=== PATIENT | female | born 1955 | race Caucasian/White ===

== ENCOUNTER → 2018-04-07 | Outpatient (CLI) | payer BC ==
--- NOTE | 2018-04-12 09:48 | MM ---
Reason for exam: screening (asymptomatic). Last mammogram was performed 11 years and 10 months ago. History: Benign excisional biopsy of the right breast. Physical Findings: A clinical breast exam by your physician is recommended on an annual basis and results should be correlated with mammographic findings. MG 3D Screening Mammo W/Cad Bilateral CC and MLO view(s) were taken. Prior study comparison: June 15, 2006, bilateral screening mammogram w/CAD. February 21, 2004, bilateral special view mammogram. The breast tissue is heterogeneously dense. This may lower the sensitivity of mammography. There is a stable right periareolar skin mass back to 2015. No suspicious abnormality. No significant changes when compared with prior studies. ASSESSMENT: Benign, BI-RAD 2 RECOMMENDATION: Routine screening mammogram of both breasts in 1 year.
== END | disposition home or self-care (01) ==
LOC: RADMAMWWP 09:50
PROVIDERS: ATTEND Family Medicine
DX: Z12.31 Encounter for screening mammogram for malignant neoplasm of breast (principal)
CPT/HCPCS: 77063; 77067

== ENCOUNTER → 2018-04-28 | Outpatient (CLI) | payer BC ==
[2018-04-28 07:57] LABS: Basophils # (A) 0.1 k/uL (0-0.2); Basophils % (A) 1 %; Eosinophils # (A) 0.2 k/uL (0-0.7); Eosinophils % (A) 3 %; HCT 41.1 % (34.0-46.0); HGB 13.5 gm/dL (11.4-16.0); Lymphocytes # (A) 1.4 k/uL (1.0-4.8); Lymphocytes % (A) 21 %; MCHC 32.7 g/dL (31.0-37.0); MCV 91.5 fL (80.0-100.0); Mean Platelet Volume 6.6; Monocytes # (A) 0.4 k/uL (0-1.0); Monocytes % (A) 5 %; Neutrophils # (A) 4.7 k/uL (1.3-7.7); Neutrophils % (A) 68 %; Platelet Count 304 k/uL (150-450); RBC 4.49 m/uL (3.80-5.40); RDW 11.9 % (11.5-15.5); WBC 6.9 k/uL (3.8-10.6)
[2018-04-28 08:26] LABS: ALT 27 U/L (9-52); AST 23 U/L (14-36); Albumin 3.9 g/dL (3.5-5.0); Alkaline Phosphatase 76 U/L (38-126); Anion Gap 8 mmol/L; Blood Urea Nitrogen 9 mg/dL (7-17); Calcium 9.1 mg/dL (8.4-10.2); Carbon Dioxide 29 mmol/L (22-30); Chloride 104 mmol/L (98-107); Cholesterol 162 mg/dL (<200); Glucose 93 mg/dL (74-99); HDL Cholesterol 60 mg/dL (40-60); LDL Cholesterol,Calculated 92 mg/dL (0-99); Potassium 4.7 mmol/L (3.5-5.1); Sodium 141 mmol/L (137-145); Total Bilirubin 0.5 mg/dL (0.2-1.3); Total Protein 6.7 g/dL (6.3-8.2); Triglycerides 48 mg/dL (<150)
[2018-04-28 08:40] LABS: T4, Free (Free Thyroxine) 0.82 ng/dL (0.78-2.19)
[2018-04-28 17:31] LABS: Vitamin D 25 Hydroxy 25.5 ng/mL (30.0-100.0)
== END | disposition home or self-care (01) ==
LOC: LABWHC1 06:55
PROVIDERS: ATTEND Family Medicine
DX: Z00.00 Encounter for general adult medical examination without abnormal findings (principal); E03.9 Hypothyroidism, unspecified; E55.9 Vitamin D deficiency, unspecified; R06.00 Dyspnea, unspecified; E53.8 Deficiency of other specified B group vitamins
CPT/HCPCS: 36415; 80053; 80061; 82306; 82607; 84439; 84443; 85025

== ENCOUNTER 2018-06-19 09:01 | Observation (INO) | payer BC ==
[2018-06-19] MEDS ORDERED: SODIUM CHLORIDE 0.9% 500 ML 500 ML IV STA (09:25)
--- NOTE | 2018-06-19 09:27 | ED ---
General Adult HPI - General Chief complaint: Chest Pain Stated complaint: chest pain, SOB Time Seen by Provider: 06/19/18 09:06 Source: patient, RN notes reviewed, old records reviewed Mode of arrival: ambulatory Limitations: no limitations - History of Present Illness Initial comments: 63-year-old female presents with complaint of dyspnea and central chest tightness. Symptoms have been ongoing for the past 4 days. Patient is normally quite healthy, no chronic medical problems. No history of CAD, no history DVT or PE, no history of asthma. Patient is a nonsmoker. She states that over the past 4 days she's had dyspnea and difficulty taking a full breath. She's had palpitations and mild central chest tightness. She also complains of some pain radiating to her right jaw and right arm which has been intermittent. She had one episode of vomiting and has had nausea throughout. No cough. No fever. No lower extremity pain or swelling. - Related Data Allergies Allergy/AdvReac Type Severity Reaction Status Date / Time No Known Allergies Allergy Verified 06/19/18 09:06 Review of Systems ROS Statement: Those systems with pertinent positive or pertinent negative responses have been documented in the HPI. ROS Other: All systems not noted in ROS Statement are negative. Past Medical History Past Medical History: Thyroid Disorder History of Any Multi-Drug Resistant Organisms: None Reported Past Surgical History: Hernia Repair Additional Past Surgical History / Comment(s): colonoscopy Past Psychological History: Anxiety Smoking Status: Never smoker Past Alcohol Use History: None Reported Past Drug Use History: None Reported General Exam Limitations: no limitations General appearance: alert, in no apparent distress Head exam: Present: atraumatic, normocephalic Eye exam: Present: normal appearance, PERRL ENT exam: Present: normal exam Neck exam: Present: normal inspection. Absent: tenderness, meningismus Respiratory exam: Present: normal lung sounds bilaterally. Absent: respiratory distress, wheezes Cardiovascular Exam: Present: regular rate, normal rhythm GI/Abdominal exam: Present: soft. Absent: distended, tenderness Extremities exam: Present: normal inspection, normal capillary refill. Absent: pedal edema Neurological exam: Present: alert, oriented X3, CN II-XII intact. Absent: motor sensory deficit Psychiatric exam: Present: normal affect, normal mood Skin exam: Present: warm, dry, intact Course Vital Signs 06/19/18 06/19/18 06/19/18 09:02 09:15 09:30 Temperature 98 F Pulse Rate 76 59 L Respiratory 18 15 Rate Blood Pressure 134/62 118/66 O2 Sat by Pulse 99 98 100 Oximetry 06/19/18 10:00 Temperature Pulse Rate 56 L Respiratory 15 Rate Blood Pressure 114/66 O2 Sat by Pulse 100 Oximetry EKG Findings - EKG Comments: EKG Findings:: EKG: Sinus bradycardia, rate of 58, OH interval 186, QRS duration 74, QTC 410, no ST segment elevation or depression Medical Decision Making - Medical Decision Making 63-year-old female presenting for evaluation of chest pain. Patient has no known history of CAD, she is otherwise healthy. Chest pain has been intermittent over the past several days. She does have radiation to the right jaw. EKG is sinus bradycardia with no ST segment changes. Chest x-ray negative for acute cardiopulmonary disease. Patient has normal CBC, normal CMP , negative d-dimer and negative initial troponin. Patient will be kept in observation for serial cardiac enzymes, telemetry, and cardiology consultation. Case discussed with admitting physician, will accept. - Lab Data Result diagrams: 06/19/18 09:30 06/19/18 09:30 Lab Results 06/19/18 06/19/18 06/19/18 Range/Units 09:30 09:30 09:30 WBC 7.0 (3.8-10.6) k/uL RBC 4.75 (3.80-5.40) m/uL Hgb 14.1 (11.4-16.0) gm/dL Hct 42.7 (34.0-46.0) % MCV 89.9 (80.0-100.0) fL MCH 29.6 (25.0-35.0) pg MCHC 33.0 (31.0-37.0) g/dL RDW 11.7 (11.5-15.5) % Plt Count 335 (150-450) k/uL Neutrophils % 71 % Lymphocytes % 20 % Monocytes % 5 % Eosinophils % 1 % Basophils % 1 % Neutrophils # 4.9 (1.3-7.7) k/uL Lymphocytes # 1.4 (1.0-4.8) k/uL Monocytes # 0.4 (0-1.0) k/uL Eosinophils # 0.1 (0-0.7) k/uL Basophils # 0.0 (0-0.2) k/uL PT (9.0-12.0) sec INR (<1.2) APTT (22.0-30.0) sec D-Dimer (<0.60) mg/L FEU Sodium 139 (137-145) mmol/L Potassium 4.0 (3.5-5.1) mmol/L Chloride 104 (98-107) mmol/L Carbon Dioxide 27 (22-30) mmol/L Anion Gap 8 mmol/L BUN 9 (7-17) mg/dL Creatinine 0.64 (0.52-1.04) mg/dL Est GFR (CKD-EPI)AfAm >90 (>60 ml/min/1.73 sqM) Est GFR (CKD-EPI)NonAf >90 (>60 ml/min/1.73 sqM) Glucose 108 H (74-99) mg/dL Calcium 9.5 (8.4-10.2) mg/dL Magnesium 1.9 (1.6-2.3) mg/dL Total Bilirubin 0.7 (0.2-1.3) mg/dL AST 20 (14-36) U/L ALT 24 (9-52) U/L Alkaline Phosphatase 70 (38-126) U/L Total Creatine Kinase 51 (30-135) U/L CK-MB (CK-2) 0.5 (0.0-2.4) ng/mL CK-MB (CK-2) Rel Index 1.0 Troponin I <0.012 (0.000-0.034) ng/mL NT-Pro-B Natriuret Pep pg/mL Total Protein 7.0 (6.3-8.2) g/dL Albumin 4.0 (3.5-5.0) g/dL Lipase 176 (23-300) U/L 06/19/18 06/19/18 Range/Units 09:30 09:30 WBC (3.8-10.6) k/uL RBC (3.80-5.40) m/uL Hgb (11.4-16.0) gm/dL Hct (34.0-46.0) % MCV (80.0-100.0) fL MCH (25.0-35.0) pg MCHC (31.0-37.0) g/dL RDW (11.5-15.5) % Plt Count (150-450) k/uL Neutrophils % % Lymphocytes % % Monocytes % % Eosinophils % % Basophils % % Neutrophils # (1.3-7.7) k/uL Lymphocytes # (1.0-4.8) k/uL Monocytes # (0-1.0) k/uL Eosinophils # (0-0.7) k/uL Basophils # (0-0.2) k/uL PT 10.6 (9.0-12.0) sec INR 1.1 (<1.2) APTT 24.7 (22.0-30.0) sec D-Dimer 0.31 (<0.60) mg/L FEU Sodium (137-145) mmol/L Potassium (3.5-5.1) mmol/L Chloride (98-107) mmol/L Carbon Dioxide (22-30) mmol/L Anion Gap mmol/L BUN (7-17) mg/dL Creatinine (0.52-1.04) mg/dL Est GFR (CKD-EPI)AfAm (>60 ml/min/1.73 sqM) Est GFR (CKD-EPI)NonAf (>60 ml/min/1.73 sqM) Glucose (74-99) mg/dL Calcium (8.4-10.2) mg/dL Magnesium (1.6-2.3) mg/dL Total Bilirubin (0.2-1.3) mg/dL AST (14-36) U/L ALT (9-52) U/L Alkaline Phosphatase (38-126) U/L Total Creatine Kinase (30-135) U/L CK-MB (CK-2) (0.0-2.4) ng/mL CK-MB (CK-2) Rel Index Troponin I (0.000-0.034) ng/mL NT-Pro-B Natriuret Pep 191 pg/mL Total Protein (6.3-8.2) g/dL Albumin (3.5-5.0) g/dL Lipase (23-300) U/L Disposition Clinical Impression: Chest pain Disposition: ADMITTED IP TO THIS [facility] Condition: Stable Is patient prescribed a controlled substance at d/c from ED?: No Referrals: Kathe Saba MD [Primary Care Provider] - 1-2 days Decision to Admit Reason: Admit from EC Decision Date: 06/19/18 Decision Time: 10:53
--- NOTE | 2018-06-19 09:52 | XR ---
EXAMINATION TYPE: XR chest 2V DATE OF EXAM: 06/19/2018 HISTORY: Chest Pain. REFERENCE: Previous study dated 07/09/2017. FINDINGS: The lungs are overinflated but clear. Pleural spaces are clear. Heart size is within normal limits. IMPRESSION: PLEASE CORRELATE FOR COPD.
[2018-06-19 09:57] LABS: Basophils % (A) 1 %; Eosinophils # (A) 0.1 k/uL (0-0.7); Eosinophils % (A) 1 %; HCT 42.7 % (34.0-46.0); HGB 14.1 gm/dL (11.4-16.0); Lymphocytes # (A) 1.4 k/uL (1.0-4.8); Lymphocytes % (A) 20 %; MCH 29.6 pg (25.0-35.0); MCV 89.9 fL (80.0-100.0); Mean Platelet Volume 6.8; Monocytes # (A) 0.4 k/uL (0-1.0); Monocytes % (A) 5 %; Neutrophils # (A) 4.9 k/uL (1.3-7.7); Neutrophils % (A) 71 %; Platelet Count 335 k/uL (150-450); RBC 4.75 m/uL (3.80-5.40); RDW 11.7 % (11.5-15.5)
[2018-06-19 10:09] LABS: D-Dimer 0.31 mg/L FEU (<0.60); INR 1.1 (<1.2); Partial Thromboplastin Time 24.7 sec (22.0-30.0); Prothrombin Time 10.6 sec (9.0-12.0)
[2018-06-19 10:13] LABS: ALT 24 U/L (9-52); AST 20 U/L (14-36); Alkaline Phosphatase 70 U/L (38-126); Anion Gap 8 mmol/L; Blood Urea Nitrogen 9 mg/dL (7-17); Calcium 9.5 mg/dL (8.4-10.2); Carbon Dioxide 27 mmol/L (22-30); Chloride 104 mmol/L (98-107); Glucose 108 mg/dL (74-99); Lipase 176 U/L (23-300); Magnesium 1.9 mg/dL (1.6-2.3); Sodium 139 mmol/L (137-145); Total Bilirubin 0.7 mg/dL (0.2-1.3)
[2018-06-19 10:19] LABS: Creatine Kinase 51 U/L (30-135)
[2018-06-19 10:31] LABS: Creatine Kinase MB 0.5 ng/mL (0.0-2.4); Troponin I <0.012 ng/mL (0.000-0.034)
[2018-06-19] MEDS ORDERED: ASPIRIN 325 MG TAB PO STA (10:43)
[2018-06-19] MEDS ORDERED: NALOXONE 0.4 MG/ML 1 ML VIAL IV PRN (10:49)
--- NOTE | 2018-06-19 15:15 | P.HPIM ---
History of Present Illness H&P Date: 06/19/18 Chief Complaint: Chest pain 63-year-old female with PMH of hypothyroidism presents to the ED for chest pain and shortness of breath. Patient states that she was sitting down once a night when she experienced a sudden onset of racing heart that led to some shortness of breath. At that time patient believed that she lost consciousness for about 1 second. When she woke up she was confused, sweating and had one episode of vomiting that was NBNB. Patient denied any bladder or bowel incontinence at that time. She denied any auras prior to the episode. Patient states over the next 3 days she has felt more short of breath, stated that she "can't catch my breath". She also complains of waves of palpitation and chest soreness. Today, she experienced some numbness in her right cheek which prompted her to come to the emergency department. Otherwise, patient reports that she is in good health. She does complain of shortness of breath with exertion, able to climb 3 flights of stairs before stopping to catch her breath. She denies any orthopnea. She does have a history of panic attacks. Last one was 7 years ago. She denies any recent stress. In the ED, CBC was unremarkable. Coagulation panel is unremarkable. D-dimer is negative. CMP was negative except for a glucose of 108. Troponin was less than 0.012, EKG shows sinus bradycardia. BNP was 191. Chest x-ray shows COPD. Patient is admitted under observation to rule out ACS, cardiology on consult as well. Review of Systems All systems: negative Past Medical History Past Medical History: Thyroid Disorder History of Any Multi-Drug Resistant Organisms: None Reported Past Surgical History: Hernia Repair Additional Past Surgical History / Comment(s): colonoscopy Past Psychological History: Anxiety Smoking Status: Never smoker Past Alcohol Use History: None Reported Past Drug Use History: None Reported Medications and Allergies Home Medications Medication Instructions Recorded Confirmed Type Antronex 1 tab PO DAILY 06/19/18 06/19/18 History Hyper Thyroid Oral Drops 1 drop PO BID 06/19/18 06/19/18 History Levothyroxine Sodium [Synthroid] 25 mcg PO DAILY 06/19/18 06/19/18 History Vitamin D3-K2 Oral [place] 1 spray PO DAILY 06/19/18 06/19/18 History Allergies Allergy/AdvReac Type Severity Reaction Status Date / Time No Known Allergies Allergy Verified 06/19/18 10:59 Physical Exam Vitals: Vital Signs Temp Pulse Resp BP Pulse Ox 06/19/18 12:30 58 L 18 114/65 96 06/19/18 12:00 59 L 18 104/65 99 06/19/18 11:30 54 L 18 117/64 100 06/19/18 11:00 57 L 24 107/68 98 06/19/18 10:30 59 L 11 L 112/67 97 06/19/18 10:00 56 L 15 114/66 100 06/19/18 09:30 59 L 15 118/66 100 06/19/18 09:15 98 06/19/18 09:02 98 F 76 18 134/62 99 Intake and Output 06/19/18 06/19/18 06/19/18 06:59 14:59 22:59 Other: Weight 61.235 kg General: [non toxic], [no distress], [appears at stated age] Derm: [warm], [dry] Head: [atraumatic], [normocephalic], [symmetric] Eyes: [EOMI], [no lid lag], [anicteric sclera] Mouth: [no lip lesion], [mucus membranes moist] Cardiovascular: [S1S2 reg], [no murmur], [positive DP pulse bilateral] Lungs: [CTA bilateral], [no rhonchi, no rales] , [no accessory muscle use] Abdominal: [soft], [ nontender to palpation], [no guarding], [no appreciable organomegaly] Ext: [no gross muscle atrophy], [no edema], [no contractures] Neuro: [no focal neuro deficits] Psych: [Alert], [oriented], [appropriate affect] Results CBC & Chem 7: 06/19/18 09:30 06/19/18 09:30 Labs: Abnormal Lab Results - Last 24 Hours (Table) 06/19/18 Range/Units 09:30 Glucose 108 H (74-99) mg/dL Thrombosis Risk Factor Assmnt - Choose All That Apply Any of the Below Risk Factors Present?: No Other Risk Factors: Yes Each Risk Factor Represents 2 Points: Age 61-74 years Thrombosis Risk Factor Assessment Total Risk Factor Score: 2 Thrombosis Risk Factor Assessment Level: Low Risk Assessment and Plan Assessment: Assessment and Plan 1. Chest pain: Sounds like panic attack but concerns for ACS. Troponin < 0.012, EKG showing sinus bradycardia. CXR consistent with COPD. Pain management with Tylenol. Telemetry monitoring. O2 per NC to maintain O2 sat > 92%. Trend Trop/ EKG x 2 to r/o ACS. FU Echocardiogram, Cardiology. 2. Hypothyroidism: Stable. Continue Synthroid 25 mcg PO QD. 3. DVT/GI Prophylaxis: Protonix 40 mg PO QD. SCD boots only.
[2018-06-19 16:39] LABS: Creatine Kinase 42 U/L (30-135)
[2018-06-19] MEDS: ACETAMINOPHEN TAB 325 MG TAB PO PRN (16:42)
[2018-06-19 16:51] LABS: Creatine Kinase MB 0.3 ng/mL (0.0-2.4); Troponin I <0.012 ng/mL (0.000-0.034)
[2018-06-19 22:10] LABS: Creatine Kinase 40 U/L (30-135)
[2018-06-19 22:23] LABS: Creatine Kinase MB 0.3 ng/mL (0.0-2.4); Troponin I <0.012 ng/mL (0.000-0.034)
[2018-06-20] MEDS ORDERED: LEVOTHYROXINE 25 MCG TAB PO SCH (06:30)
[2018-06-20] MEDS ORDERED: PANTOPRAZOLE 40 MG TABLET PO SCH (07:30)
[2018-06-20] MEDS ORDERED: NICOTINE 21MG/24HR PATCH TRANSDERM SCH (09:00)
--- NOTE | 2018-06-20 09:34 | ECHOF ---
Referral Reason:chest pain MEASUREMENTS -------- HEIGHT: 165.1 cm WEIGHT: 61.2 kg BP: 106/63 RVIDd: 2.5 cm (< 3.3) IVSd: 0.9 cm (0.6 - 1.1) LVIDd: 3.7 cm (3.9 - 5.3) LVPWd: 1.1 cm (0.6 - 1.1) IVSs: 1.3 cm LVIDs: 2.5 cm LVPWs: 1.2 cm LA Diam: 2.6 cm (2.7 - 3.8) LAESV Index (A-L): 21.73 ml/m Ao Diam: 2.9 cm (2.0 - 3.7) AV Cusp: 2.3 cm (1.5 - 2.6) EPSS: 0.1 cm MV E Ezekiel: 0.95 m/s MV DecT: 332 ms MV A Ezekiel: 0.87 m/s MV E/A Ratio: 1.09 AR PHT: 893 ms RAP: 5.00 mmHg RVSP: 19.68 mmHg MV EF SLOPE: 60.84 mm/s (70 - 150) MV EXCURSION: 2.13 cm (> 18.000) FINDINGS -------- Sinus rhythm. This was a technically good study. The left ventricular size is normal. Left ventricular wall thickness is normal. Overall left vent ricular systolic function is normal with, an EF between 60 - 65 %. The right ventricle is normal in size. Normal LA size by volume 22+/-6 ml/m2. The right atrium is normal in size. The aortic valve is trileaflet and appears structurally normal. There is mild aortic regurgitation. The mitral valve is normal. There is trace mitral regurgitation. Mild tricuspid regurgitation present. Right ventricular systolic pressure is normal at < 35 mmHg. Trace/mild (physiologic) pulmonic regurgitation. The aortic root size is normal. Normal inferior vena cava with normal inspiratory collapse consistent with estimated right atrial pre ssure of 5 mmHg. There is no pericardial effusion. CONCLUSIONS -------- 1. Sinus rhythm. 2. This was a technically good study. 3. The left ventricular size is normal. 4. Left ventricular wall thickness is normal. 5. Overall left ventricular systolic function is normal with, an EF between 60 - 65 %. 6. The right ventricle is normal in size. 7. Normal LA size by volume 22+/-6 ml/m2. 8. The right atrium is normal in size. 9. The aortic valve is trileaflet and appears structurally normal. 10. There is mild aortic regurgitation. 11. The mitral valve is normal. 12. There is trace mitral regurgitation. 13. Mild tricuspid regurgitation present. 14. Right ventricular systolic pressure is normal at < 35 mmHg. 15. Trace/mild (physiologic) pulmonic regurgitation. 16. The aortic root size is normal. 17. Normal inferior vena cava with normal inspiratory collapse consistent with estimated right atrial pressure of 5 mmHg. 18. There is no pericardial effusion. VALET: MICHELA Brown
[2018-06-20 09:53] VITALS: TEMP 97.9
[2018-06-20 09:57] VITALS: BP 107/70
[2018-06-20 10:05] VITALS: PULSE 93; RESP 16
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
--- NOTE | 2018-06-20 11:54 | ECHOS ---
STRESS ECHOCARDIOGRAM INDICATIONS: Chest pain. MEDICATIONS: Synthroid. BASELINE HEART RATE: 66 BASELINE BLOOD PRESSURE: 108/57 MAXIMUM HEART RATE: 138 MAXIMUM BLOOD PRESSURE: 139/71 85% MPHR: 134 100% MPHR: 158 METS: 12.0 MAXIMUM STAGE REACHED: 4 TOTAL EXERCISE TIME: 10:30 CLINICAL INFORMATION: Baseline EKG shows sinus rhythm, normal axis, normal intervals. Patient exercised on Brijesh protocol for a total of 10.5 minutes achieving 12 METs, 85% of predicted maximal heart rate without chest pain or diagnostic ST-segment depression. Baseline echo shows normal left ventricular size, wall motion, systolic function. Postexercise, there is normal hyperdynamic response of all segments of myocardium noted. CONCLUSION: 1. Excellent exercise tolerance. 2. Negative stress test by EKG criteria. 3. Negative stress echo. MMODL / IJN: [id number] /
[2018-06-20] MEDS: ACETAMINOPHEN TAB 325 MG TAB PO PRN (12:49)
--- NOTE | 2018-06-20 18:44 | P.DS ---
Providers Date of admission: 06/19/18 10:49 Expected date of discharge: 06/20/18 Attending physician: Aundrea Fletcher MD Consults: 06/19/18 10:49 Consult Physician Routine Consulting Provider: Judie Lu Consult Reason/Comments: Chest pain Do you want consulting provider notified?: Yes Primary care physician: Kathe Saba MD Hospital Course: Patient is a 63-year-old female with a past medical history of hypothyroidism and anxiety who presented to the ED complaining of chest pain associated with palpitations, shortness of breath, dizziness and episode of nausea. Patient had associated episodes of diaphoresis. Patient was placed under observation status for evaluation of chest pain. Cardiology was consulted and recommended an echocardiogram stress test which showed excellent exercise tolerance and negative stress test by EKG criteria along with a negative stress echo. The patient was subsequently cleared for discharge. Physical Examination General: Awake, alert, in no acute distress HEENT: NC/AT, anicteric sclerae, moist conjunctiva, no lid-lag, PERRLA, oropharynx clear, no erythema, exudates Cardiovascular: S1/S2 wnl, no murmurs, rubs, or gallops Lungs: Clear to auscultation, normal respiratory effort, no accessory muscle use Abdominal: Soft, nontender, non-distended, no guarding, rebound, or rigidity, normoactive bowel sounds Skin: Warm, dry Extremities: No edema or contractures Psychiatric: Alert and oriented to person, place and time, appropriate affect, Intact judgment Neuro: CN II-XI grossly intact, sensation to light touch grossly present throughout, no focal sensory deficits Discharge diagnosis:Panic disorder, Hypothyroidism A total of 40 minutes of time were spent preparing this complex discharge summary. Patient Condition at Discharge: Good Plan - Discharge Summary Discharge Rx Participant: No New Discharge Prescriptions: Continue Levothyroxine Sodium [Synthroid] 25 mcg PO DAILY Vitamin D3-K2 Oral [place] 1 spray PO DAILY Hyper Thyroid Oral Drops 1 drop PO BID Antronex 1 tab PO DAILY Discharge Medication List Antronex 1 tab PO DAILY 06/19/18 [History] Hyper Thyroid Oral Drops 1 drop PO BID 06/19/18 [History] Levothyroxine Sodium [Synthroid] 25 mcg PO DAILY 06/19/18 [History] Vitamin D3-K2 Oral [place] 1 spray PO DAILY 06/19/18 [History] Follow up Appointment(s)/Referral(s): Kathe Saba MD [Primary Care Provider] - 1-2 days (06/23 at 8:20am ) Gumaro Kelley MD [STAFF PHYSICIAN] - 08/03/18 10:00 am Patient Instructions/Handouts: Chest Pain (DC), Telemetry Monitoring (GEN) Activity/Diet/Wound Care/Special Instructions: resume same home medications no restrictions with activity 30 day event monitor- educated on use and wear Discharge Disposition: HOME SELF-CARE
== END 2018-06-20 15:01 | disposition home or self-care (01) ==
LOC: EC 09:01 → 1SOBS 10:49
PROVIDERS: ADMIT Family Medicine; ATTEND Family Medicine
DX: R07.89 Other chest pain (principal); R11.2 Nausea with vomiting, unspecified; E03.9 Hypothyroidism, unspecified; F41.0 Panic disorder [episodic paroxysmal anxiety]; Z79.890 Hormone replacement therapy; Z82.49 Family history of ischemic heart disease and other diseases of the circulatory system; Z79.899 Other long term (current) drug therapy
CPT/HCPCS: 96360; 99285; 36415; 93005; 93306; 93270; 93271; 93351; 85379; 83880; 80053; 84443; 82550; 82553; 83690; 83735; 84484; 85025; 85610; 85730; 71046; G0378 ×2

== ENCOUNTER → 2018-06-23 | Outpatient (CLI) | payer BC ==
--- NOTE | 2018-06-23 11:03 | CT ---
EXAMINATION TYPE: CT brain wo con DATE OF EXAM: 06/23/2018 COMPARISON: None INDICATION: Episode of change in speech; Numbness DLP: 943.80 mGycm, Automated exposure control for dose reduction was used. CONTRAST: None CT of the brain is performed utilizing 3 mm thick sections through the posterior fossa and 3 mm thick sections through the remaining calvarium. Study is performed within 24 hours of arrival to the hosp ital. No abnormal hyperdensity is present to suggest an acute intracranial hemorrhage. No mass lesion is evident. No acute infarcts are evident. Ventricles and sulci are appropriate for the patient age. There is a patent cavum septum lucidum, a normal variant. Paranasal sinuses and mastoid air cells within the [id number] are clear. IMPRESSIONS: 1. Normal CT Brain
== END | disposition home or self-care (01) ==
LOC: RADCTMAIN 10:24
PROVIDERS: ATTEND Family Medicine
DX: R20.0 Anesthesia of skin (principal); R47.89 Other speech disturbances
CPT/HCPCS: 70450

== ENCOUNTER → 2019-05-19 | Outpatient (CLI) | payer BC ==
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
--- NOTE | 2019-05-23 08:17 | MM ---
Reason for exam: screening (asymptomatic). Last mammogram was performed 1 year and 1 month ago. History: Patient is postmenopausal. Benign excisional biopsy of the right breast. Physical Findings: A clinical breast exam by your physician is recommended on an annual basis and results should be correlated with mammographic findings. MG 3D Screening Mammo W/Cad Bilateral CC and MLO view(s) were taken. Prior study comparison: April 07, 2018, bilateral MG 3d screening mammo w/cad. July 31, 2016, mammogram. October 30, 2014, mammogram. There are scattered fibroglandular densities. Global asymmetry on the left is stable. No significant changes when compared with prior studies. ASSESSMENT: Negative, BI-RAD 1 RECOMMENDATION: Routine screening mammogram of both breasts in 1 year.
== END | disposition home or self-care (01) ==
LOC: RADMAMWWP 07:57
PROVIDERS: ATTEND Obstetrics & Gynecology
DX: Z12.31 Encounter for screening mammogram for malignant neoplasm of breast (principal); M85.851 Other specified disorders of bone density and structure, right thigh; M85.852 Other specified disorders of bone density and structure, left thigh; M85.88 Other specified disorders of bone density and structure, other site
CPT/HCPCS: 77063; 77067; 77080

== ENCOUNTER 2019-07-11 02:33 | Emergency (ER) | payer BC ==
[2019-07-11] MEDS ORDERED: FAMOTIDINE 20 MG/2 ML VIAL IV STA (02:43)
[2019-07-11] MEDS ORDERED: methylPREDNISolone SOD SUCCI 125 MG/2 ML VIAL IV STA (02:43)
[2019-07-11] MEDS ORDERED: diphenhydrAMINE 50 MG/ML 1 ML VIAL IVP STA (02:43)
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
[2019-07-11 04:16] VITALS: BP 107/69; PULSE 70; RESP 16; TEMP 98
== END 2019-07-11 04:17 | disposition home or self-care (01) ==
LOC: EC 02:33
DX: T78.40XA Allergy, unspecified, initial encounter (principal); E03.9 Hypothyroidism, unspecified; Z79.890 Hormone replacement therapy; Z79.899 Other long term (current) drug therapy
CPT/HCPCS: 96374; 96375 ×2; 99283; J1200; J2930

== ENCOUNTER → 2019-07-13 | Outpatient (CLI) | payer BC ==
[2019-07-14 13:33] LABS: Almond IgE <0.10 kU/L (<0.10); Almond IgE Class CLASS 0; Beef IgE <0.10 kU/L (<0.10); Beef IgE Class CLASS 0; Pork IgE Class CLASS 0
[2019-07-14 13:34] LABS: Apple IgE Class CLASS 0; Chicken IgE Class CLASS 0; Chocolate IgE Class CLASS 0; Gluten IgE Class CLASS 0; Latex IgE Class CLASS 0; Yeast Bakers/Brew IgE <0.10 kU/L (<0.10)
[2019-07-14 13:35] LABS: Alt. alternata IgE Class CLASS 0; Alternaria alternata IgE <0.10 kU/L (<0.10); Asperg. fumagatus IgE <0.10 kU/L (<0.10); Asperg. fumagatus IgE Class CLASS 0; Aureo. pullulans IgE <0.10 kU/L (<0.10); Aureo. pullulans IgE Class CLASS 0; Avocado Class CLASS 0; Banana IgE Class CLASS 0; Birch(Com.Silvr) IgE <0.10 kU/L (<0.10); Birch(Com.Silvr) IgE Class CLASS 0; Candida albicans IgE Class CLASS 0; Cat Epith & Dander IgE <0.10 kU/L (<0.10); Cat Epith & Dander IgE Class CLASS 0; Clad herbarum IgE <0.10 kU/L (<0.10); Clad herbarum IgE Class CLASS 0; Cockroach IgE <0.10 kU/L (<0.10); Coffee IgE <0.10 kU/L (<0.10); Coffee IgE Class CLASS 0; Com. Pigweed IgE <0.10 kU/L (<0.10); Com. Pigweed IgE Class CLASS 0; Cottonwood IgE <0.10 kU/L (<0.10); Cow's Milk IgE Class CLASS 0; Dermato. Pteronyssinus Class CLASS 0; Dermato. Pteronyssinus IgE <0.10 kU/L (<0.10); Dermato. farinae IgE <0.10 kU/L (<0.10); Dermato. farinae IgE Class CLASS 0; Dog Dander IgE <0.10 kU/L (<0.10); Egg White IgE <0.10 kU/L (<0.10); English Plantain IgE Class CLASS 0; Epicoccum purpurascens Class CLASS 0; Epicoccum purpurascens IgE <0.10 kU/L (<0.10); Hazelnut IgE <0.10 kU/L (<0.10); Hazelnut IgE Class CLASS 0; Johnson Grass IgE Class CLASS 0; Kiwi IgE <0.10 kU/L (<0.10); Kiwi IgE Class CLASS 0; Lamb's Quarter IgE <0.10 kU/L (<0.10); Lamb's Quarter IgE Class CLASS 0; Maple (Box Elder) IgE <0.10 kU/L (<0.10); Maple (Box Elder) IgE Class CLASS 0; Mucor racemosus IgE <0.10 kU/L (<0.10); Mucor racemosus IgE Class CLASS 0; Oak IgE <0.10 kU/L (<0.10); Peanut IgE <0.10 kU/L (<0.10); Potato IgE <0.10 kU/L (<0.10); Potato IgE Class CLASS 0; Rhizopus nigricans IgE <0.10 kU/L (<0.10); S.rostrata/Helminth Class CLASS 0; S.rostrata/Helminth IgE <0.10 kU/L (<0.10); Soybean IgE <0.10 kU/L (<0.10); Sycamore(Mpl.Lf) IgE <0.10 kU/L (<0.10); Tea IgE <0.10 kU/L (<0.10); Timothy Grass IgE <0.10 kU/L (<0.10); Walnut Tree IgE <0.10 kU/L (<0.10); Walnut Tree IgE Class CLASS 0; White Ash IgE Class CLASS 0
== END ==
LOC: LABWHC1 13:05
PROVIDERS: ATTEND Otolaryngology
DX: L50.0 Allergic urticaria (principal)
CPT/HCPCS: 36415; 86003

== ENCOUNTER → 2019-08-08 | Outpatient (CLI) | payer BC ==
[2019-08-08 16:18] LABS: Basophils % (A) 1 %; Eosinophils # (A) 0.3 k/uL (0-0.7); Eosinophils % (A) 4 %; HCT 41.5 % (34.0-46.0); HGB 13.4 gm/dL (11.4-16.0); Lymphocytes # (A) 1.6 k/uL (1.0-4.8); Lymphocytes % (A) 26 %; MCH 30.3 pg (25.0-35.0); MCHC 32.4 g/dL (31.0-37.0); MCV 93.4 fL (80.0-100.0); Mean Platelet Volume 7.7; Monocytes # (A) 0.3 k/uL (0-1.0); Monocytes % (A) 5 %; Neutrophils % (A) 63 %; Platelet Count 281 k/uL (150-450); RBC 4.44 m/uL (3.80-5.40); RDW 11.8 % (11.5-15.5); WBC 6.4 k/uL (3.8-10.6)
[2019-08-09 00:11] LABS: C Reactive Protein <0.4 mg/dL (0.0-0.8)
== END | disposition home or self-care (01) ==
LOC: LABWHC1 15:23
PROVIDERS: ATTEND Otolaryngology
DX: L50.9 Urticaria, unspecified (principal)
CPT/HCPCS: 36415; 85025; 86038; 86140; 86160

== ENCOUNTER → 2020-12-25 | Outpatient (CLI) | payer BC ==
--- NOTE | 2020-12-30 07:52 | US ---
EXAMINATION TYPE: US transvaginal DATE OF EXAM: 12/25/2020 COMPARISON: NONE CLINICAL HISTORY: N95.0 POST MENOPAUSAL BLEEDING. post menopausal spotting TECHNIQUE: Transvaginal (TV). Date of LMP: unknown EXAM MEASUREMENTS: Uterus: 6.2 x 2.3 x 3.6 cm Endometrial Stripe: 0.2 cm Right Ovary: unable to visualize Left Ovary: unable to visualize 1. Uterus: Anteverted 2. Endometrium: fluid within 3. Right Ovary: Obscured by overlying bowel gas 4. Left Ovary: Obscured by overlying bowel gas 5. Bilateral Adnexa: prominent vessels right adnexa 6. Posterior cul-de-sac: appears wnl IMPRESSION: Fluid identified within the endometrium. Limited visualization of the ovaries. No evidence for adnexa l mass.
== END | disposition home or self-care (01) ==
LOC: RADUSWWP 13:55
PROVIDERS: ATTEND Obstetrics & Gynecology
DX: N95.0 Postmenopausal bleeding (principal); Z78.0 Asymptomatic menopausal state
CPT/HCPCS: 76830

== ENCOUNTER → 2021-05-30 | Outpatient (CLI) | payer MEDICARE, BC ==
--- NOTE | 2021-06-03 10:17 | MM ---
Reason for exam: screening (asymptomatic). Last mammogram was performed 2 years ago. History: Patient is postmenopausal. Benign excisional biopsy of the right breast. Took hormonal contraceptives for 10 years. Physical Findings: A clinical breast exam by your physician is recommended on an annual basis and results should be correlated with mammographic findings. MG 3D Screening Mammo W/Cad Bilateral CC and MLO view(s) were taken. Prior study comparison: May 19, 2019, bilateral MG 3d screening mammo w/cad. April 07, 2018, mammogram. July 31, 2016, mammogram. There are scattered fibroglandular densities. No significant changes when compared with prior studies. ASSESSMENT: Benign, BI-RAD 2 RECOMMENDATION: Routine screening mammogram of both breasts in 1 year.
== END | disposition home or self-care (01) ==
LOC: RADMAMWWP 11:50
PROVIDERS: ATTEND Family Medicine
DX: Z12.31 Encounter for screening mammogram for malignant neoplasm of breast (principal); Z78.0 Asymptomatic menopausal state
CPT/HCPCS: 77063; 77067

== ENCOUNTER → 2021-08-06 | Outpatient (CLI) | payer MEDICARE, BC ==
--- NOTE | 2021-08-06 09:15 | BD ---
EXAMINATION TYPE: Axial Bone Density DATE OF EXAM: 08/06/2021 COMPARISON: NONE CLINICAL HISTORY: Height: 64.5 Weight: 127.5 FRAX RISK QUESTIONS: Alcohol (3 or more units per day): no Family History (Parent hip fracture): no Glucocorticoids (More than 3mos): no (Ex: prednisone, prednisolone, methylprednisolone, dexamethasone, and hydrocortisone). History of Fracture in Adulthood: no Secondary Osteoporosis: 1. Type 1 Diabetes: no 2. Hyperthyroidism: no 3. Menopause before 45: no 4. Malnutrition: no 5. Chronic liver disease: no Rheumatoid Arthritis: no Current Tobacco Use: no RISK FACTORS HISTORY OF: Surgery to Spine/Hip(right/left)/Wrist (right/left): no Family History of Osteoporosis: no Active: yes Diet low in dairy products/other sources of calcium: yes Postmenopausal woman: yes Lost more than 2 inches in height since high school: no MEDICATIONS: vitamins Thyroid Medications: thyroid How Lon years Additional History: EXAM MEASUREMENTS: Bone mineral densitometry was performed using the [employer] System. Bone mineral density as measured about the Lumbar spine is: ----- L1-L4(G/cm2): 1.005 T Score Values are as follows: ----- L2: -2.0 ----- L3: -1.6 ----- L4: -0.6 ----- L1-L4: -1.5 Bone mineral density has: decreased -3.8 % since study of: 05.19.2019 Bone mineral density about the R hip (g/cm2): 0.746 Bone mineral density about the L hip (g/cm2): 0.752 T Score values are as follows: -----R Neck: -2.1 -----L Neck: -2.1 -----R Total: -1.7 -----L Total: -1.8 Bone mineral density has: decreased -1.6 % since study of: 05.19.2019 IMPRESSION: Osteopenia (T Score between -2.5 and -1). There is slightly increased risk of fracture and the patient may be considered for treatment. Re-Screen 2-5 years. NOTE: T-SCORE=SD OF THE YOUNG ADULT MEAN.
== END | disposition home or self-care (01) ==
LOC: RADBDWWP 07:27
PROVIDERS: ATTEND Obstetrics & Gynecology
DX: M85.89 Other specified disorders of bone density and structure, multiple sites (principal); Z78.0 Asymptomatic menopausal state
CPT/HCPCS: 77080

== ENCOUNTER → 2021-08-29 | Outpatient (CLI) | payer MEDICARE, BC ==
[~2021-08-29] MED LIST: CASIRIVIMAB (REGN10933) (EUA) 600 MG, IMDEVIMAB (REGN10987) (EUA) 600 MG in SODIUM CHLO... IVPB ONE; ONDANSETRON 4 MG/2 ML VIAL IVP ONE; SODIUM CHLORIDE 0.9% 50 ML IVPB ONE; SODIUM CHLORIDE 0.9% 500 ML 500 ML in EMPTY BAG 1 BAG IV PRN
[2021-08-29 15:44] VITALS: TEMP 98.6
[2021-08-29 16:08] VITALS: BP 90/54; PULSE 75; RESP 16
== END ==
LOC: PROCWHC3 13:03
PROVIDERS: ATTEND Obstetrics & Gynecology
DX: U07.1 COVID-19 (principal)
CPT/HCPCS: 96360; 96375; J2405; Q0244; M0243

== ENCOUNTER → 2022-05-01 | Outpatient (CLI) | payer MEDICARE, BC ==
[2022-05-01 17:25] LABS: African American GFR (CKD) >90 (>60 ml/min/1.73 sqM); Blood Urea Nitrogen 8 mg/dL (7-17); Non-African American GFR(CKD) >90 (>60 ml/min/1.73 sqM)
--- NOTE | 2022-05-01 20:16 | CT ---
EXAMINATION TYPE: CT abdomen pelvis w con CT DLP: 498.0 mGycm, Automated exposure control for dose reduction was used. DATE OF EXAM: 05/01/2022 7:06 PM COMPARISON: Abdominal ultrasound 04/17/2022. CLINICAL INDICATION:Female, 67 years old with history of K86.89 OTHER SPECIFIED DISEASES OF PANCREAS; Pancreatic abnormality found on prior US on 04/17/22. Pt also complains of bloating/weight gain. 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 Sagittal and coronal reformats were created on a [employer] workstation. Contrast used:90cc mL of Isovue 300 with IV Contrast, Oral contrast used: with Oral Contrast FINDINGS: LOWER CHEST: Unremarkable ABDOMEN LIVER: Unremarkable GALLBLADDER AND BILE DUCTS: Unremarkable. PANCREAS: Persistent prominence of the main pancreatic duct at the upper limits normal at 4 mm in the pancreatic neck. No evidence of mass. The pancreatic parenchyma enhances uniformly. SPLEEN: Unremarkable. ADRENAL GLANDS: Unremarkable. KIDNEYS AND URETERS: No evidence of hydronephrosis or renal calculus. The ureters are unremarkable. PELVIS BLADDER: Unremarkable REPRODUCTIVE: Unremarkable. ABDOMEN & PELVIS STOMACH AND BOWEL: No evidence of bowel obstruction. PERITONEUM: No evidence of pneumoperitoneum or free fluid. VASCULATURE: No evidence of aortic aneurysm. MUSCULOSKELETAL: No acute osseous abnormalities, mild multilevel disc degeneration changes throughout the spine. LYMPH NODES: No gross evidence for lymphadenopathy. SOFT TISSUE/ABDOMINAL WALL: Unremarkable IMPRESSION: Main pancreatic duct dilation up to 4 mm at the pancreatic neck similar to prior ultrasound. No evide nce of mass. If there is clinical concern consider MRCP.
== END | disposition home or self-care (01) ==
LOC: RADCTMAIN 16:35
PROVIDERS: ATTEND Internal Medicine
DX: K86.89 Other specified diseases of pancreas (principal)
CPT/HCPCS: 82565; 84520; 74177; 36415; Q9967 ×2

== ENCOUNTER → 2022-07-01 | Outpatient (CLI) | payer MEDICARE, BC ==
--- NOTE | 2022-07-01 19:48 | CA ---
Transthoracic Echo Report Name: Zeina White Age: 67 Gender: F : 1955 Exam Date: 07/01/2022 08:31 Exam Location: [facility] Ht (in): 64 Wt (lb): 126 Ordering Physician: Gordo Trent MD Attending/Referring Phys: [employer] Manager Zeina Glasgow, CHELSIE Procedure CPT: Indications: I35.1 regurgitation Cardiac Hx: Technical Quality: Contrast 1: Total Dose (mL): Contrast 2: Total Dose (mL): MEASUREMENTS (Male / Female) Normal Values 2D ECHO LV Diastolic Diameter PLAX 3.7 cm 4.2 - 5.9 / 3.9 - 5.3 cm LV Systolic Diameter PLAX 2.9 cm IVS Diastolic Thickness 0.9 cm 0.6 - 1.0 / 0.6 - 0.9 cm LVPW Diastolic Thickness 1.5 cm 0.6 - 1.0 / 0.6 - 0.9 cm LV Relative Wall Thickness 0.6 RV Internal Dim ED PLAX 2.3 cm LA Systolic Diameter LX 2.7 cm 3.0 - 4.0 / 2.7 - 3.8 cm LA Volume 42.2 cm??? 18 - 58 / 22 - 52 cm??? M-MODE Aortic Root Diameter MM 2.6 cm LA Systolic Diameter MM 3.4 cm LA Ao Ratio MM 1.3 MV E Point Septal Separation 0.1 cm AV Cusp Separation MM 2.0 cm DOPPLER MV Area PHT 2.6 cm??? Mitral E Point Velocity 75.6 cm/s Mitral A Point Velocity 61.5 cm/s Mitral E to A Ratio 1.2 MV Deceleration Time 288.0 ms MV E' Velocity 6.3 cm/s Mitral E to MV E' Ratio 12.0 FINDINGS Left Ventricle Moderately increased posterior wall thickness. Left ventricular ejection fraction is estimated at 50-55 %. Right Ventricle Normal right ventricular size and function. Right ventricular systolic pressure within normal limits. Right Atrium Normal right atrial size. Left Atrium Normal left atrial size. Mitral Valve Mitral valve thickened. Mild mitral regurgitation. Aortic Valve Trileaflet aortic valve. Mild aortic regurgitation. Tricuspid Valve Structurally normal tricuspid valve. Mild tricuspid regurgitation. Pulmonic Valve Structurally normal pulmonic valve. Pericardium Normal pericardium. Aorta Normal size aortic root and proximal ascending aorta. CONCLUSIONS Normal left ventricular dimension and systolic function Mild aortic insufficiency Previewed by: Dr. Ernesto Cr MD (Electronically Signed) Final Date: 01 July 2022 19:47
== END | disposition home or self-care (01) ==
LOC: RADECHMAIN 08:25
PROVIDERS: ATTEND Internal Medicine
DX: I35.1 Nonrheumatic aortic (valve) insufficiency (principal)
CPT/HCPCS: 93306

== ENCOUNTER → 2022-07-03 | Outpatient (CLI) | payer MEDICARE, BC ==
--- NOTE | 2022-07-06 19:45 | MM ---
Reason for Exam: Screening (asymptomatic). Last mammogram was performed 1 year(s) and 1 month(s) ago. Patient History: Menarche at age 14. First Full-Term at age 26. Postmenopausal. Patient used Hormonal Contraceptives for 10 years. Benign Excisional Biopsy on the right side. Mother had breast cancer, age 74. Risk Values: Isabel 5 year model risk: 3.9%. NCI Lifetime model risk: 13.5%. Prior Study Comparison: 04/07/2018 Bilateral Screening Mammogram, [facility]. 05/19/2019 Bilateral Screening Mammogram, [facility]. 05/30/2021 Bilateral Screening Mammogram, [facility]. Tissue Density: There are scattered fibroglandular densities. Findings: Analyzed By CAD. There is no suspicious group of microcalcifications or new suspicious mass in either breast. Overall Assessment: Benign, BI-RAD 2 Management: Screening Mammogram of both breasts in 1 year. 1. Patient should continue monthly self breast exams. 2. A clinical breast exam by your physician is recommended on an annual basis. 3. This exam should not preclude additional follow-up of suspicious palpable abnormalities. Electronically signed and approved by: Korey Julio M.D. Radiologist
== END | disposition home or self-care (01) ==
LOC: RADMAMWWP 16:29
PROVIDERS: ATTEND Internal Medicine
DX: Z12.31 Encounter for screening mammogram for malignant neoplasm of breast (principal); Z78.0 Asymptomatic menopausal state; Z80.3 Family history of malignant neoplasm of breast
CPT/HCPCS: 77063; 77067

== ENCOUNTER → 2022-08-06 | Outpatient (CLI) | payer MEDICARE, BC ==
--- NOTE | 2022-08-07 06:32 | US ---
EXAMINATION TYPE: US transvaginal DATE OF EXAM: 08/06/2022 COMPARISON: CT abdomen and pelvis May 01, 2022 CLINICAL HISTORY: Z80.41 FAMILY HISTORY OF MALIGNANT NEOPLASM OF OVA. Patient states she feel bloated . Sister has ovarian cancer. TECHNIQUE: Transvaginal (TV). Date of LMP: OFFICE SUPERVISOR, EXAM MEASUREMENTS: Uterus: 5.8 X 3.8 X 2.4 cm Endometrial Stripe: 0.1 cm Right Ovary: 2.0 X 1.8 X 1.5 cm 1. Uterus: Anteverted Heterogenous and small in size 2. Endometrium: wnl 3. Right Ovary: Cystic lesion with internal echoes = 1.3 x 1.2 x 1.2 cm 4. Left Ovary: Obscured by overlying bowel gas 5. Bilateral Adnexa: wnl 6. Posterior cul-de-sac: no free fluid Heterogeneous anteverted uterus. Endometrial stripe within normal limits for postmenopausal female. N o free fluid. Right ovary is identified with 1.3 cm thin-walled cyst. Left ovary not clearly seen. No suspicious l eft-sided adnexal mass noted. IMPRESSION: No left-sided adnexal mass. There is 1.3 cm simple appearing thin-walled cyst in the righ t ovary with smooth inner wall. O-Rads 2 lesion almost certainly benign.
== END | disposition home or self-care (01) ==
LOC: RADUSWWP 16:43
PROVIDERS: ATTEND Obstetrics & Gynecology
DX: N83.201 Unspecified ovarian cyst, right side (principal); Z80.41 Family history of malignant neoplasm of ovary
CPT/HCPCS: 76830

== ENCOUNTER → 2022-08-08 | Outpatient (CLI) | payer MEDICARE, BC | END | disposition home or self-care (01) | LOC: LABWHC1 09:44 | PROVIDERS: ATTEND Obstetrics & Gynecology | DX: Z00.00 Encounter for general adult medical examination without abnormal findings (principal); Z80.41 Family history of malignant neoplasm of ovary | CPT/HCPCS: 36415; 86304 ==

== ENCOUNTER → 2023-08-18 | Outpatient (CLI) | payer MEDICARE, OTHER ==
[2023-08-18 19:12] LABS: Basophils # (A) 0.06 X 10*3/uL (0.00-0.10); Basophils % (A) 0.8 %; Eosinophils # (A) 0.11 X 10*3/uL (0.04-0.35); Eosinophils % (A) 1.5 %; HCT 41.6 % (37.2-46.3); HGB 13.5 g/dL (12.0-15.0); Lymphocytes % (A) 21.6 %; MCH 30.5 pg (27.0-32.0); MCHC 32.5 g/dL (32.0-37.0); MCV 94.1 FL (80.0-97.0); Mean Platelet Volume 11.3 FL (9.5-12.2); Monocytes # (A) 0.48 X 10*3/uL (0.20-1.00); Monocytes % (A) 6.5 %; NRBC Per 100 WBC 0 X 10*3/uL (0.00-0.01); Neutrophils # (A) 5.14 X 10*3/uL (1.80-7.70); Neutrophils % (A) 69.2 %; Platelet Count 295 X 10*3/uL (140-440); RBC 4.42 X 10*6/uL (4.10-5.20); RDW 11.9 % (11.5-14.5); WBC 7.42 X 10*3/uL (4.50-10.00)
[2023-08-18 19:56] LABS: % Iron Saturation 36.59 (12.00-45.00); BUN/Creat Ratio 16.43 Ratio (12.00-20.00); Blood Urea Nitrogen 11.5 mg/dL (9.0-27.0); Chloride 103 mmol/L (96-109); Chol/HDL Ratio 2.34 Ratio; Glucose 89 mg/dL (70-110); Iron 101 UG/DL (50-170); LDL Cholesterol,Calculated 88.3 mg/dL (0.0-131.0); Potassium 4.2 mmol/L (3.5-5.5); Sodium 141 mmol/L (135-145); Total Iron Binding Capacity 276 UG/DL (228-460); VLDL Calculation 9.46 mg/dL (5.00-40.00)
[2023-08-18 19:57] LABS: ALT 11 U/L (8-44); AST 20 U/L (13-35); Albumin 4.2 g/dL (3.8-4.9); Albumin/Globulin Ratio 1.83 Ratio (1.60-3.17); Alkaline Phosphatase 88 U/L (41-126); Calcium 9.8 mg/dL (8.7-10.3); Globulin 2.3 g/dL (1.6-3.3); Total Bilirubin 0.5 mg/dL (0.3-1.2); Total Protein 6.5 g/dL (6.2-8.2)
== END | disposition home or self-care (01) ==
LOC: LABWHC1 12:16
PROVIDERS: ATTEND Internal Medicine
DX: Z00.00 Encounter for general adult medical examination without abnormal findings (principal); E11.59 Type 2 diabetes mellitus with other circulatory complications; E03.9 Hypothyroidism, unspecified; E53.9 Vitamin B deficiency, unspecified; E55.9 Vitamin D deficiency, unspecified
CPT/HCPCS: 36415; 80053; 80061; 82306; 82607; 82746; 83540; 83550; 84439; 84443; 85025; 86803

== ENCOUNTER → 2023-08-24 | Outpatient (CLI) | payer MEDICARE ==
--- NOTE | 2023-08-25 14:52 | MM ---
Reason for Exam: Screening (asymptomatic). Last mammogram was performed 1 year(s) and 2 month(s) ago. Patient History: Menarche at age 14. First Full-Term at age 26. Postmenopausal. Patient used Hormonal Contraceptives for 10 years. Benign Excisional Biopsy on the right side. Mother had breast cancer, age 74. Risk Values: Isabel 5 year model risk: 3.9%. NCI Lifetime model risk: 13.0%. Prior Study Comparison: 05/19/2019 Bilateral Screening Mammogram, [facility]. 05/30/2021 Bilateral Screening Mammogram, [facility]. 07/03/2022 Bilateral MG 3D screening mammo w/cad, [facility]. Tissue Density: There are scattered fibroglandular densities. Findings: Analyzed By CAD. There is no suspicious group of microcalcifications or new suspicious mass. Overall Assessment: Negative, BI-RAD 1 Management: Screening Mammogram of both breasts in [address] [facility] will attempt to contact patient to return for supplemental views and ultrasound if indicated. Patient should continue monthly self-breast exams. A clinical breast exam by your physician is recommended on an annual basis. This exam should not preclude additional follow-up of suspicious palpable abnormalities. Note on Isabel scores and lifetime risk: 1. A Isabel score greater than 3% is considered moderate risk. If this is the case, consider specialist referral to assess eligibility for a risk reducing agent. 2. If overall lifetime risk for the development of breast cancer is 20% or higher, the patient may qualify for future screening with alternating mammogram and breast MRI. Electronically signed and approved by: Samy Jackson DO
== END | disposition home or self-care (01) ==
LOC: RADMAMWWP 14:37
PROVIDERS: ATTEND Internal Medicine
DX: Z12.31 Encounter for screening mammogram for malignant neoplasm of breast (principal); Z80.3 Family history of malignant neoplasm of breast; Z78.0 Asymptomatic menopausal state
CPT/HCPCS: 77063; 77067

== ENCOUNTER → 2024-05-12 | Outpatient (CLI) | payer MEDICARE ==
[2024-05-12 10:48] LABS: Basophils # (A) 0.06 X 10*3/uL (0.00-0.10); Basophils % (A) 0.9 %; Eosinophils # (A) 0.13 X 10*3/uL (0.04-0.35); Eosinophils % (A) 2.1 %; HCT 40.3 % (37.2-46.3); HGB 13.5 g/dL (12.0-15.0); Lymphocytes # (A) 1.27 X 10*3/uL (0.90-5.00); Lymphocytes % (A) 20.1 %; MCH 30.7 pg (27.0-32.0); MCHC 33.5 g/dL (32.0-37.0); MCV 91.6 FL (80.0-97.0); Mean Platelet Volume 10.5 FL (9.5-12.2); Monocytes # (A) 0.63 X 10*3/uL (0.20-1.00); NRBC Per 100 WBC 0 X 10*3/uL (0.00-0.01); Neutrophils # (A) 4.22 X 10*3/uL (1.80-7.70); Neutrophils % (A) 66.6 %; Platelet Count 295 X 10*3/uL (140-440); RDW 11.9 % (11.5-14.5); WBC 6.33 X 10*3/uL (4.50-10.00)
[2024-05-12 11:13] LABS: % Iron Saturation 30.27 (12.00-45.00); ALT 13 U/L (8-44); AST 20 U/L (13-35); Albumin 4.2 g/dL (3.8-4.9); Albumin/Globulin Ratio 1.68 Ratio (1.60-3.17); Alkaline Phosphatase 103 U/L (41-126); BUN/Creat Ratio 16.12 Ratio (12.00-20.00); Blood Urea Nitrogen 12.9 mg/dL (9.0-27.0); Calcium 9.6 mg/dL (8.7-10.3); Chloride 104 mmol/L (96-109); Chol/HDL Ratio 2.24 Ratio; Creatine Kinase 102 U/L (26-186); Ferritin 36.1 ng/mL (10.0-291.0); Globulin 2.5 g/dL (1.6-3.3); Glucose 93 mg/dL (70-110); Iron 89 UG/DL (50-170); LDL Cholesterol,Calculated 84.9 mg/dL (0.0-131.0); Potassium 4.4 mmol/L (3.5-5.5); Sodium 139 mmol/L (135-145); Total Bilirubin 0.6 mg/dL (0.3-1.2); Total Iron Binding Capacity 294 UG/DL (228-460); Total Protein 6.7 g/dL (6.2-8.2)
== END | disposition home or self-care (01) ==
LOC: LABWHC1 07:09
PROVIDERS: ATTEND Internal Medicine
DX: Z00.00 Encounter for general adult medical examination without abnormal findings (principal); E03.9 Hypothyroidism, unspecified; G25.81 Restless legs syndrome; E53.8 Deficiency of other specified B group vitamins; E55.9 Vitamin D deficiency, unspecified
CPT/HCPCS: 36415; 80053; 80061; 82306; 82550; 82607; 82728; 82746; 83540; 83550; 83735; 84439; 84443; 85025

== ENCOUNTER → 2024-06-06 | Outpatient (CLI) | payer MEDICARE ==
--- NOTE | 2024-06-06 15:12 | CA ---
Transthoracic Echo Report Name: Zeina White Age: 69 Gender: F : 1955 Exam Date: 06/06/2024 13:26 Exam Location: [facility] Ht (in): 64 Wt (lb): 126 Ordering Physician: Gordo Trent DO Attending/Referring Phys: Loop Tacker Helena Rodriguez RDCS Procedure CPT: Indications: I35.1 Cardiac Hx: Technical Quality: Good Contrast 1: Total Dose (mL): Contrast 2: Total Dose (mL): MEASUREMENTS (Male / Female) Normal Values 2D ECHO LV Diastolic Diameter PLAX 4.2 cm 4.2 - 5.9 / 3.9 - 5.3 cm LV Systolic Diameter PLAX 2.6 cm IVS Diastolic Thickness 0.5 cm 0.6 - 1.0 / 0.6 - 0.9 cm LVPW Diastolic Thickness 0.6 cm 0.6 - 1.0 / 0.6 - 0.9 cm LV Relative Wall Thickness 0.3 RV Internal Dim ED PLAX 2.6 cm LA Systolic Diameter LX 2.6 cm 3.0 - 4.0 / 2.7 - 3.8 cm LV Diastolic Volume MOD 4C 87.4 cm??? LV Systolic Volume MOD 4C 35.4 cm??? LV Ejection Fraction MOD 4C 59.5 % LV Cardiac Index MOD 4C 1713.4 cm???/min???m??? LV Diastolic Length 4C 7.8 cm LV Systolic Length 4C 5.7 cm LV Diastolic Volume MOD 2C 79.2 cm??? LV Systolic Volume MOD 2C 23.8 cm??? LV Ejection Fraction MOD 2C 69.9 % LV Cardiac Index MOD 2C 1824.3 cm???/min???m??? LV Diastolic Length 2C 7.3 cm LV Systolic Length 2C 5.6 cm LA Volume 49.2 cm??? 18 - 58 / 22 - 52 cm??? LA Volume Index 30.6 cm???/m??? 16 - 28 cm???/m??? M-MODE Aortic Root Diameter MM 2.9 cm AV Cusp Separation MM 2.3 cm DOPPLER AV Peak Velocity 117.3 cm/s AV Peak Gradient 5.5 mmHg AI Peak Velocity 325.4 cm/s AI Peak Gradient 42.3 mmHg AI Pressure Half Time 1840.4 ms MV Area PHT 2.9 cm??? Mitral E Point Velocity 109.0 cm/s Mitral A Point Velocity 96.0 cm/s Mitral E to A Ratio 1.1 MV Deceleration Time 258.6 ms TR Peak Velocity 201.9 cm/s TR Peak Gradient 16.3 mmHg Right Ventricular Systolic Press 20.6 mmHg FINDINGS Left Ventricle Left ventricular ejection fraction is estimated at 60-65 %. Left ventricular cavity size normal. Left ventricular wall thickness normal. Normal left ventricular wall motion. Right Ventricle Normal right ventricular size and function. Right ventricular systolic pressure within normal limits. Right Atrium Normal right atrial size. No right atrial thrombus or mass seen. Left Atrium Mildly increased left atrial volume. No left atrial thrombus or mass present. Mitral Valve Mitral valve thickened. Trace mitral regurgitation. No mitral stenosis. No evidence for mitral valve prolapse. Aortic Valve Trileaflet aortic valve. Mild aortic regurgitation. Tricuspid Valve Structurally normal tricuspid valve. Trace to mild tricuspid regurgitation. Pulmonic Valve Structurally normal pulmonic valve. No pulmonic stenosis. No pulmonic regurgitation. Pericardium No pericardial or pleural effusion. Aorta Normal size aortic root and proximal ascending aorta. CONCLUSIONS Left ventricular ejection fraction 60-65% Trace mitral regurgitation Mild aortic regurgitation Trace to mild tricuspid regurgitation Previewed by: Dr. Crow Abreu DO (Electronically Signed) Final Date: 06 June 2024 15:11
--- NOTE | 2024-06-07 08:13 | BD ---
EXAMINATION TYPE: Axial Bone Density DATE OF EXAM: 06/06/2024 CLINICAL HISTORY: 69 years old Female. ICD-10 CODE: Z78.0 OSTEOPOROSIS SCREENING Height: 64.5 Weight: 122 FRAX RISK QUESTIONS: Family History (Parent hip fracture): no History of Fracture in Adulthood: no Secondary Osteoporosis: no RISK FACTORS HISTORY OF: Surgery to Spine/Hip(right/left)/Wrist (right/left): no MEDICATIONS: Thyroid Medications: yes Which medication: Levothyroxine How Lon+ years Osteoporosis Medications: no EXAM MEASUREMENTS: Bone mineral densitometry was performed using the [employer] System. Bone mineral density as measured about the Lumbar spine is: ----- L1-L4(G/cm2): 1.011 T Score Values are as follows: ----- L1: -2.1 ----- L2: -1.9 ----- L3: -1.3 ----- L4: -0.8 ----- L1-L4: -1.4 Z Score Values are as follows: ----- L1: -0.1 ----- L2: 0.0 ----- L3: 0.7 ----- L4: 1.2 ----- L1-L4: 0.5 Bone mineral density has: Increased 0.6% since study of: 08/06/2021 Bone mineral density about the R hip (g/cm2): 0.790 Bone mineral density about the L hip (g/cm2): 0.778 T Score values are as follows: -----R Neck: -2.2 -----L Neck: -2.2 -----R Total: -1.7 -----L Total: -1.8 Z Score values are as follows: -----R Neck: -0.4 -----L Neck: -0.4 -----R Total: -0.1 -----L Total: -0.2 Bone mineral density has: Decreased -0.6% since study of: 08/06/2021 FRAX%s: The graph provided illustrates a 11.4% chance for a major osteoporotic fx and a 2.4% chance f or the hips probability for fx in 10 years time. IMPRESSION: Osteopenia (T Score between -2.5 and -1). There is slightly increased risk of fracture and the patient may be considered for treatment. Re-Screen 2-5 years. NOTE: T-SCORE=SD OF THE YOUNG ADULT MEAN. [facility], , 06/07/2024 8:10 AM
== END | disposition home or self-care (01) ==
LOC: RADBDWWP 12:24
PROVIDERS: ATTEND Internal Medicine
CPT/HCPCS: 77080; 93306